=== PATIENT | female | born 1935 | race Hispanic/Latino ===

== ENCOUNTER 2019-01-24 07:56 | Day surgery (SDC) | payer MEDICARE ==
[~2019-01-24] VITALS: Ht 149.9 cm; Wt 63.5 kg
[~2019-01-24 07:56] MED LIST: CETI10TA57 PO; DIPH25TA51 PO; OXYB5TAB15 PO; SITA100T12 PO; SODIUM CHLORIDE 0.9% 1000ML 1,000 ML IV ONE
[2019-01-24 10:10] VITALS: BP 128/57
[2019-01-24] MEDS ORDERED: INSU100I24 SQ (10:13)
[2019-01-24 10:58] VITALS: BP 96/44
[2019-01-24 11:03] VITALS: BP 97/40
[2019-01-24 11:08] VITALS: BP 96/51
[2019-01-24 11:13] VITALS: BP 108/52
[2019-01-24] MEDS ORDERED: PROPOFOL 10 MG/ML 20ML VIAL IV ONE ×2 (11:28)
== END 2019-01-24 11:37 | disposition home or self-care (01) ==
LOC: ENDO 07:56 → DAH 07:56 → ENDO 11:37
PROVIDERS: ATTEND Internal Medicine
DX: R13.10 Dysphagia, unspecified (principal); K29.50 Unspecified chronic gastritis without bleeding; B96.81 Helicobacter pylori [H. pylori] as the cause of diseases classified elsewhere; K44.9 Diaphragmatic hernia without obstruction or gangrene; K22.8 Other specified diseases of esophagus; E78.5 Hyperlipidemia, unspecified; E11.22 Type 2 diabetes mellitus with diabetic chronic kidney disease; N18.3 Chronic kidney disease, stage 3 (moderate); D63.1 Anemia in chronic kidney disease; Z79.899 Other long term (current) drug therapy; Z90.49 Acquired absence of other specified parts of digestive tract
CPT/HCPCS: 43239; 82948 ×2; 88305; A4215; A4221; A4222; A4223; A4606; A4615; A4663; J2704 ×2; J7030